=== PATIENT | male | born 1980 | race Caucasian/White ===

== ENCOUNTER 2016-11-21 18:51 | Inpatient (IN) | payer OTHER ==
[2016-11-21 18:59] VITALS: BMI 31.7
[2016-11-21] MEDS ORDERED: ONDANSETRON 4 MG/2 ML VIAL IVPB ONE (20:05)
[2016-11-21] MEDS ORDERED: morphine CARPU-JECT 2 MG/1 ML DISP.SYRIN IVPUSH ONE (20:06)
[2016-11-21] MEDS ORDERED: PIPERACILLIN/TAZOB 4.5 GM 4.5 GM in DEXTROSE 5%-WATER - 100 ML IVPB ONE (20:06)
[2016-11-21] MEDS ORDERED: ACETAMINOPHEN INJECTION 100 ML IVPB ONE (20:07)
[2016-11-21] MEDS ORDERED: ONDANSETRON 4 MG/2 ML VIAL ONE (20:07)
[2016-11-21] MEDS ORDERED: SODIUM CHLORIDE 0.9% 500 ML INFUS.BAG IV ONE (20:07)
[2016-11-21] MEDS ORDERED: morphine CARPU-JECT 2 MG/1 ML DISP.SYRIN ONE (20:07)
[2016-11-21] MEDS ORDERED: PIPERACILLIN/TAZOB 4.5 GM 100 ML IVPB ONE (20:07)
[2016-11-21] MEDS ORDERED: ACETAMINOPHEN 1000 MG/100 ML VIAL (NON FORMULARY) IVPB ONE (20:07)
--- NOTE | 2016-11-21 20:07 | PDOC ---
History of Present Illness - General History Source: Patient, Family Exam Limitations: No Limitations - History of Present Illness Initial Comments: 11/21/16 20:28 The patient is a 36 year old male with significant past medical history of kidney stones who presents to the ED for 1 week of right lower quadrant pain. Patient reports he developed pain to the right lower quadrant about 7 days ago. However, today his pain became more constant and sharp with associated fever, diaphoresis and nausea, but no vomiting or diarrhea. 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 Denies flank pain, dysuria, hematuria, urgency, and frequency. The patient denies chills, cough, SOB, chest pain, and palpitations. Allergies: NKDA Social History: No alcohol, tobacco, or drug use reported. Past Surgical History: None reported PCP: None reported <Adina Hernandez - Last Filed: 11/21/16 21:29> <Mona Alford - Last Filed: 11/21/16 21:35> - General Chief Complaint: Pain Stated Complaint: PAIN Time Seen by Provider: 11/21/16 19:49 Past History <Adina Hernandez - Last Filed: 11/21/16 21:29> - Past Medical History Kidney Stones: Yes - Psycho/Social/Smoking Cessation Hx Anxiety: No Suicidal Ideation: No Smoking History: Never smoked Hx Alcohol Use: No Drug/Substance Use Hx: No Substance Use Type: None <Mona Alford - Last Filed: 11/21/16 21:35> - Past Medical History Allergies/Adverse Reactions: Allergies Allergy/AdvReac Type Severity Reaction Status Date / Time No Known Allergies Allergy Verified 11/21/16 18:59 Home Medications: Ambulatory Orders NK [No Known Home Medication] 11/21/16 Review of Systems - Review of Systems Able to Perform ROS?: Yes Comments:: 11/21/16 20:29 CONSTITUTIONAL: +fever, diaphoresis Absent: no chills, no fatigue EYES: Absent: visual changes ENT: Absent: ear pain, no sore throat CARDIOVASCULAR: Absent: chest pain, no palpitations RESPIRATORY: Absent: cough, no SOB GI: +right lower quadrant pain, nausea Absent: no vomiting, no constipation, no diarrhea GENITOURINARY: Absent: dysuria, no frequency, no hematuria MUSCULOSKELETAL: Absent: back pain, no arthralgia, no myalgia SKIN: Absent: rash NEURO: Absent: headache <Adina Hernandez - Last Filed: 11/21/16 21:29> *Physical Exam - Vital Signs Last Vital Signs Temp Pulse Resp BP Pulse Ox 99.0 F 70 20 119/65 99 11/21/16 18:55 11/21/16 18:55 11/21/16 18:55 11/21/16 18:55 11/21/16 20:00 - Physical Exam Comments: 11/21/16 20:29 GENERAL: Well developed, well nourished. Awake and alert. Mild-moderate distress. HEENT: Normocephalic, atraumatic. PERRL, EOM intact. CARDIOVASCULAR: Normal S1, S2. Regular rate and rhythm. PULMONARY: Clear to auscultation bilaterally. ABDOMINAL: Soft. Right lower quadrant pain. Non-distended. + rebound and + guarding. No organomegaly. Normoactive bowel sounds. MUSCULOSKELETAL Normal range of motion at all joints. No bony deformities or tenderness. No flank tenderness, but after deep palpating right flank, patient was tender in the right lower quadrant. EXTREMITIES: Normal ROM in all four extremities. No gross deformities. SKIN: Warm, dry. No rash NEUROLOGICAL: No focal neurological deficits. <Adina Hernandez - Last Filed: 11/21/16 21:29> - Vital Signs Last Vital Signs Temp Pulse Resp BP Pulse Ox 99.0 F 70 20 119/65 98 11/21/16 18:55 11/21/16 18:55 11/21/16 18:55 11/21/16 18:55 11/21/16 18:55 <Mona Alford - Last Filed: 11/21/16 21:35> ED Treatment Course - LABORATORY CBC & Chemistry Diagram: 11/21/16 20:00 11/21/16 20:00 - ADDITIONAL ORDERS Additional order review: 11/21/16 20:00 RBC 5.42 MCV 80.2 MCHC 33.0 RDW 13.2 MPV 8.1 Neutrophils % Y Lymphocytes % Y - RADIOLOGY Radiograph Interpretation: 11/21/16 21:29 EXAM: CT abdomen pelvis with contrast Reviewed by Imaging production control scheduler:Findings: Atelectasis and scarring in lung bases. No pleural effusions. The liver, gallbladder, pancreas, adrenal glands, and spleen are unremarkable. Small nonobstructing right renal calculus. No ureteral calculi or hydronephrosis. No AAA. No evidence for diverticulitis, small bowel obstruction, free fluid, or free air. *Moderate diffuse thickening of the appendix measuring up to 16mm in diameter with appendicoliths and moderate edema, compatible with appendicitis. No evidence for perforation or abscess at this time. - Medications Given in the ED: ED Medications Discontinued Medications Generic Name Dose Route Start Last Admin Trade Name Ester PRN Reason Stop Dose Admin Acetaminophen 1,000 mg 11/21/16 20:07 11/21/16 20:16 Ofirmev Injection - IVPB 11/21/16 20:08 1,000 mg ONCE ONE Administration Morphine Sulfate 2 mg 11/21/16 20:06 11/21/16 20:14 Morphine Injection - IVPUSH 11/21/16 20:07 2 mg ONCE ONE Administration Ondansetron HCl 4 mg 11/21/16 20:05 11/21/16 20:13 Zofran Injection IVPB 11/21/16 20:06 4 mg ONCE ONE Administration Sodium Chloride 1,000 ml 11/21/16 20:07 11/21/16 20:14 Normal Saline - IV 11/21/16 20:08 1,000 ml ONCE ONE Administration <Adina Hernandez - Last Filed: 11/21/16 21:29> - LABORATORY CBC & Chemistry Diagram: 11/21/16 20:00 11/21/16 20:00 <Mona Alford - Last Filed: 11/21/16 21:35> Medical Decision Making - Medical Decision Making 11/21/16 20:[address] Kevin Jacome (via answering service) at 20:30 and patient's case was discussed <Adina Hernandez - Last Filed: 11/21/16 21:29> - Medical Decision Making 11/21/16 20:31 Pt comes with abdominal pain that has been brewing since Tuesday. States that the pain got significantly worse today. Pt is febrile WBC is 24; exam consistent with perforated appendicitis/appendicitis. Pt has no other complaints. He has a history of kidney stones. No dysuria or blood in urine at this time. Pt sent for a dry CTT after we ayde labs and treated with saline, zosyn, ofirmev and morphine. I spoke to Dr. Olguin surgery to give him a head's up. 11/21/16 20:39 atient Name: Carlos Rodríguez THIS IS A PRELIMINARY REPORT FROM [facility] EXAM : CT abdomen pelvis with contrast IMAGES: 423 DATE OF EXAM: 2016-11-21 20:33: 49.0 REASON FOR EXAM: Rule out perforated appendicitis COMPARISON: None Findings: Atelectasis and scarring in lung bases. No pleural effusions. The liver, gallbladder, pancreas, adrenal glands, and spleen are unremarkable. Small nonobstructing right renal calculus. No ureteral calculi or hydronephrosis. No AAA. No evidence for diverticulitis, small bowel obstruction , free fluid, or free air. *Moderate diffuse thickening of the appendix measuring up to 16mm in diameter with appendicoliths and moderate edema, compatible with appendicitis. No evidence for perforation or abscess at this time. THIS DOCUMENT HAS BEEN ELECTRONICALLY SIGNED Dr Olguin will take him to the OR; he is mobilizing the surgical team. 11/21/16 21:30 I will admit to the hospitalist <Mona Alford - Last Filed: 11/21/16 21:35> *DC/Admit/Observation/Transfer - Attestations Scribe Attestion: 11/21/16 20:29 Documentation prepared by Adina Hernandez, acting as medical collections representative for Mona Alford MD/DO. <Adina Hernandez - Last Filed: 11/21/16 21:29> - Discharge Dispostion Admit: Yes <Mona Alford - Last Filed: 11/21/16 21:35> Diagnosis at time of Disposition: Acute appendicitis - Discharge Dispostion Condition at time of disposition: Guarded
[2016-11-21 20:19] LABS: MCH 26.5 pg (25.7-33.7); MEAN CELL VOLUME 80.2 fl (80-96); MEAN PLT VOLUME 8.1 fl (7.5-11.1); PLATELET COUNT 300 K/MM3 (134-434); RDW 13.2 % (11.9-15.9); WHITE BLOOD COUNT 24.8 K/mm3 (4.0-10.0)
[2016-11-21 20:28] LABS: URINE APPEARANCE CLOUDY; URINE BILIRUBIN NEGATIVE (NEGATIVE); URINE BLOOD NEGATIVE (NEGATIVE); URINE COLOR LTYELLOW; URINE GLUCOSE (UA) NEGATIVE (NEGATIVE); URINE KETONE NEGATIVE (NEGATIVE); URINE LEUK ESTERASE NEGATIVE (NEGATIVE); URINE NITRITE NEGATIVE (NEGATIVE); URINE PROTEIN NEGATIVE (NEGATIVE); URINE UROBILINOGEN NEGATIVE E.U./dl (0.2-1.0)
[2016-11-21 20:38] LABS: INR 1.13 (0.82-1.09); PROTHROMBIN TIME (PATIENT) 12.5 SEC (9.98-11.88)
[2016-11-21 20:49] LABS: ALBUMIN 4.3 g/dl (3.4-5.0); AMYLASE 90 U/L (25-115); ANION GAP 10 (8-16); CALCIUM 9.3 mg/dL (8.5-10.1); CO2 24 mmol/L (21-32); COCKROFT - GAULT 137.59; CREATININE 0.8 mg/dL (0.7-1.3); GLUCOSE,RANDOM 110 mg/dL (74-106); SGOT/AST 16 U/L (15-37); SGPT/ALT 31 U/L (12-78)
[2016-11-21 20:51] LABS: ALK PHOS 94 U/L (45-117); BILIRUBIN,TOTAL 0.4 mg/dL (0.2-1.0); TOT PROT 7.8 g/dl (6.4-8.2)
[2016-11-21] MEDS ORDERED: morphine CARPU-JECT 2 MG/1 ML DISP.SYRIN IVPUSH PRN (21:59)
[2016-11-21] MEDS ORDERED: ONDANSETRON 4 MG/2 ML VIAL IVPB PRN (21:59)
[2016-11-21] MEDS ORDERED: SODIUM CHLORIDE 1,000 ML IV SCH (22:00)
--- NOTE | 2016-11-21 22:14 | HP ---
Admitting History and Physical - Admission Chief Complaint: abd pain History of Present Illness: History obtained from chart Patient sent to OR Per chart this is a 36 yo M w hx of kidney stones who presents to the ED for 1 week of right lower quadrant pain. Patient reports he developed pain to the right lower quadrant about 7 days ago. However, today his pain became more constant and sharp with associated fever, diaphoresis and nausea, but no vomiting or diarrhea. He was found to have appendicitis on Ct scan and sent to OR for appendectomy. He was given 1 dose of zosyn in the ER. His wbc was 24. Ros unobtainable Physical- unobtainable patient in surgery Problem list Appendicitis Leukocytosis Imaging CTAP: 11/21/16 20:39 atient Name: Carlos Rodríguez THIS IS A PRELIMINARY REPORT FROM [facility]IN[facility] EXAM : CT abdomen pelvis with contrast IMAGES: 423 DATE OF EXAM: 2016-11-21 20:33: 49.0 REASON FOR EXAM: Rule out perforated appendicitis COMPARISON: None Findings: Atelectasis and scarring in lung bases. No pleural effusions. The liver, gallbladder, pancreas, adrenal glands, and spleen are unremarkable. Small nonobstructing right renal calculus. No ureteral calculi or hydronephrosis. No AAA. No evidence for diverticulitis, small bowel obstruction , free fluid, or free air. *Moderate diffuse thickening of the appendix measuring up to 16mm in diameter with appendicoliths and moderate edema, compatible with appendicitis. No evidence for perforation or abscess at this time. THIS DOCUMENT HAS BEEN ELECTRONICALLY SIGNED A/P 1. Appendicitis Given Zosyn in the ER No perf noted on CT Surgery called and slated for OR 2. Leukocytosis likely 2/2 appendectomy Trend CBC DVT prophy scds,oob, hold chemo prophy 2/2 anticipated sx Fen NPO IVF Dispo- Requires >2MN stay for acute appendicitis History Source: Medical Record - Smoking History Smoking history: Never smoked - Alcohol/Substance Use Hx Alcohol Use: No Home Medications - Allergies Allergies/Adverse Reactions: Allergies Allergy/AdvReac Type Severity Reaction Status Date / Time No Known Allergies Allergy Verified 11/21/16 18:59 - Home Medications Home Medications: Ambulatory Orders NK [No Known Home Medication] 11/21/16 Physical Examination Vital Signs: Vital Signs Temperature 98.8 F 11/21/16 22:03 Pulse Rate 59 L 11/21/16 22:03 Respiratory Rate 20 11/21/16 22:03 Blood Pressure 104/65 11/21/16 22:03 O2 Sat by Pulse Oximetry (%) 98 11/21/16 22:03 Labs: CBC, BMP 11/21/16 20:00 11/21/16 20:00 Visit type - Emergency Visit Emergency Visit: Yes ED Registration Date: 11/21/16 Care time: The patient presented to the Emergency Department on the above date and was hospitalized for further evaluation of their emergent condition. - New Patient This patient is new to me today: Yes Date on this admission: 11/22/16 - Critical Care Critical Care patient: No
[2016-11-21] MEDS ORDERED: PROPOFOL 20 ML ONE (22:19)
[2016-11-21] MEDS ORDERED: ROCURONIUM BROMIDE 50 MG/5 ML VIAL ONE (22:19)
[2016-11-21] MEDS ORDERED: LIDOCAINE HCL/PF 2% SDV 5ML VIAL ONE (22:20)
[2016-11-21] MEDS ORDERED: DEXAMETHASONE SOD PHOSPHATE 4 MG/1 ML VIAL ONE (22:20)
--- NOTE | 2016-11-21 22:31 | HP ---
Admitting History and Physical - Admission Chief Complaint: abd pain History of Present Illness: pt is a 36M with abd pain x 1 week in RLQ. ER workup reveals WBC of [address] scan showing no perforation, thick appendix with appendicolith c/w dx of appendicitis. Limitations to Obtaining History: Language Barrier - Smoking History Smoking history: Never smoked - Alcohol/Substance Use Hx Alcohol Use: No Home Medications - Allergies Allergies/Adverse Reactions: Allergies Allergy/AdvReac Type Severity Reaction Status Date / Time No Known Allergies Allergy Verified 11/21/16 18:59 - Home Medications Home Medications: Ambulatory Orders NK [No Known Home Medication] 11/21/16 Family Disease History - Family Disease History Family History: Unremarkable Review of Systems - Review of Systems Constitutional: denies: Chills, Fever Eyes: denies: Blind Spots, Blurred Vision HENT: denies: Difficult Swallowing, Ear Discharge Neck: denies: Decreased ROM, Pain on Movement Cardiovascular: denies: Chest Pain, Edema Respiratory: denies: Cough, Exercise Intolerance Gastrointestinal: reports: Abdominal Pain. denies: Bloating Genitourinary: denies: Burning, Discharge Musculoskeletal: denies: Back Pain, Crepitus Integumentary: denies: Blister, Bruising Neurological: denies: Change in LOC, Change in Speech Endocrine: denies: Excessive Sweating, Flushing Hematology/Lymphatic: denies: Easily Bruised, Excessive Bleeding Psychiatric: denies: Altered Sleep Pattern, Anxiety Physical Examination Vital Signs: Vital Signs Temperature 98.8 F 11/21/16 22:03 Pulse Rate 59 L 11/21/16 22:03 Respiratory Rate 20 11/21/16 22:03 Blood Pressure 104/65 11/21/16 22:03 O2 Sat by Pulse Oximetry (%) 98 11/21/16 22:03 Constitutional: Yes: No Distress, Calm Eyes: Yes: Conjunctiva Clear, EOM Intact HENT: Yes: Atraumatic, Normocephalic Neck: Yes: Supple, Trachea Midline Cardiovascular: Yes: Regular Rate and Rhythm Respiratory: Yes: Regular, CTA Bilaterally Gastrointestinal: Yes: Soft, Tenderness (RLQ tender, min mild). No: Distention ...Rectal Exam: Yes: Deferred Renal/: No: CVA Tenderness - Left, CVA Tenderness - Right Musculoskeletal: No: Back Pain, Joint Stiffness Extremities: No: Calf Tenderness, Erythema Integumentary: No: Erythema, Rash Neurological: Yes: Alert, Oriented Psychiatric: Yes: Alert, Oriented Labs: CBC, BMP 11/21/16 20:00 11/21/16 20:00 Imaging - Results Cat Scan: Image Reviewed Problem List - Problems (1) Acute appendicitis Assessment/Plan: for lap appy. r/b d/w pt and he understands and wishes to proceed. Code(s): K35.80 - UNSPECIFIED ACUTE APPENDICITIS
[2016-11-21] MEDS ORDERED: GLYCOPYRROLATE 0.2 MG/1 ML VIAL ONE ×2 (23:10→23:23)
[2016-11-21] MEDS ORDERED: NEOSTIGMINE METHYLSULFATE 0.5 MG/ML - 10 ML MDV ONE (23:22)
[2016-11-21] MEDS ORDERED: OXYCODONE/APAP 5/325MG COMBO TABLET PO PRN ×2 (23:30)
--- NOTE | 2016-11-21 23:32 | OP ---
Operative Note - Note: Operative Date: 11/21/16 Pre-Operative Diagnosis: appendicitis Operation: laparoscopic appendectomy Findings: appendicitis Post-Operative Diagnosis: Same as Pre-op Surgeon: Kevin Jacome Anesthesia: General Specimens Removed: appendix Estimated Blood Loss (mls): 5 Operative Report Dictated: Yes
[2016-11-22] MEDS ORDERED: SODIUM CHLORIDE 1,000 ML IV SCH
[2016-11-22] MEDS ORDERED: ONDANSETRON 4 MG/2 ML VIAL IVPB PRN
[2016-11-22] MEDS: HYDROmorphone HCL CARPU-JECT 1 MG/1 ML DISP.SYRIN IVPUSH PRN ×2 (00:02→00:20)
[2016-11-22] MEDS ORDERED: HYDROmorphone HCL CARPU-JECT 2 MG/1 ML DISP.SYRIN ONE (00:03)
--- NOTE | 2016-11-22 00:46 | OP ---
DATE OF OPERATION: 11/21/2016 PREOPERATIVE DIAGNOSIS: Appendicitis. POSTOPERATIVE DIAGNOSIS: Appendicitis. PROCEDURE: Laparoscopic appendectomy. SURGEON: Madina Jacome MD ANESTHESIA: General endotracheal anesthesia. ESTIMATED BLOOD LOSS: Minimal. DESCRIPTION OF PROCEDURE: Patient was brought to the operating room from the emergency room after confirming his name, date of , medical record number. He was placed in the supine position. SCDs for DVT prophylaxis. He was given appropriate perioperative antibiotics. He was then induced and intubated by the anesthesiologist. A Hurley catheter was then placed under sterile conditions. He was then prepped and draped in the usual sterile fashion after his left arm was tucked. A timeout was then performed. A 1-inch supraumbilical incision was made and bluntly dissected down to the fascia. I used electrocautery to go through the fascia and lifted his abdominal wall anteriorly. I then grabbed his peritoneum with Gloria clamps, lifted anteriorly, and then cut and entered his abdomen sharply. I then placed my finger inside the abdomen and confirmed no adhesions and then placed a 12-mm balloon with Ulysses trocar inside the abdomen. I insufflated the abdomen to a pressure of 15 mmHg. I then placed 5-mm trocars in the suprapubic and left lower quadrant regions with translumination to ensure no injury to abdominal wall blood vessels. The patient was then placed in Trendelenburg position with the right side up. The large appendix was readily identified. There were some retroperitoneal attachments of the mid to proximal appendix and these were bluntly dissected off. Once I was able to free up the appendix, I then dissected the base of the appendix from the mesentery with the Jodi dissector. Once I went through, I use the bowel grasper to make the hole bigger. I then fired a white-load 45-mm stapler to take the mesentery of the appendix. Hemostasis was noted to be excellent. With the appendix completely in the air, I then confirmed that the ileocecal valve was far away and I took it at the base of the appendix with a 45-mm blue-load stapler. At this point, I irrigated and aspirated out all fluid, ensured hemostasis, and placed the appendix in a 10-mm specimen retrieval bag and sent it off of the field for permanent examination. I then reinspected the staple lines and was satisfied with perfect hemostasis. I then removed the ports and desufflated the abdomen. I then closed the supraumbilical fascia with a [id number] 0 Vicryl suture and then reapproximated the skin and subcutaneous tissues with 4-0 Monocryl. A Hurley catheter was to be removed. All counts were correct. MADINA JACOME M.D. ADAM/[id number]
[2016-11-22] MEDS ORDERED: HYDROmorphone HCL CARPU-JECT 1 MG/1 ML DISP.SYRIN IVPB PRN (05:00)
[2016-11-22 08:16] LABS: BASOPHIL 0.1 % (0-2.0); MCH 27.4 pg (25.7-33.7); MCHC 33.5 g/dl (32.0-35.9); MEAN CELL VOLUME 81.7 fl (80-96); MEAN PLT VOLUME 7.9 fl (7.5-11.1); NEUTROPHILS 88.8 % (42.8-82.8); PLATELET COUNT 268 K/MM3 (134-434); RDW 13.4 % (11.9-15.9); WHITE BLOOD COUNT 16.9 K/mm3 (4.0-10.0)
[2016-11-22 08:33] LABS: CALCIUM 8.6 mg/dL (8.5-10.1)
[2016-11-22 08:34] LABS: COCKROFT - GAULT 220.14; CREATININE 0.5 mg/dL (0.7-1.3)
--- NOTE | 2016-11-22 08:40 | PN ---
Progress Note (short form) - Note Progress Note: 36 yo male POD1 from lap appy. Doing well. Ambulating. Pain adequately controlled. Nausea resolved. Vital Signs Temperature 97.9 F 11/22/16 06:00 Pulse Rate 66 11/22/16 06:00 Respiratory Rate 16 11/22/16 06:00 Blood Pressure 110/50 11/22/16 06:00 O2 Sat by Pulse Oximetry (%) 100 11/22/16 02:58
--- NOTE | 2016-11-22 09:31 | PN ---
Progress Note, Physician Chief Complaint: none History of Present Illness: some postop nausea but finished his regular diet breakfast. no pain. feels alot better. - Current Medication List Current Medications: Active Medications Sodium Chloride (Normal Saline -) 1,000 mls @ 150 mls/hr IV ASDIR BEREKET Last Admin: 11/22/16 08:28 Dose: 150 mls/hr Ondansetron HCl (Zofran Injection) 4 mg IVPB Q4H PRN PRN Reason: NAUSEA AND/OR VOMITING Last Admin: 11/22/16 08:02 Dose: 4 mg Oxycodone/Acetaminophen (Percocet 5/325 -) 2 combo PO Q4H PRN PRN Reason: PAIN LEVEL 6-10 Oxycodone/Acetaminophen (Percocet 5/325 -) 1 combo PO Q4H PRN PRN Reason: PAIN LEVEL 1-5 - Objective Vital Signs: Vital Signs Temperature 97.9 F 11/22/16 06:00 Pulse Rate 66 11/22/16 06:00 Respiratory Rate 16 11/22/16 06:00 Blood Pressure 110/50 11/22/16 06:00 O2 Sat by Pulse Oximetry (%) 100 11/22/16 02:58 Constitutional: Yes: No Distress, Calm Gastrointestinal: Yes: Soft. No: Distention, Tenderness Wound/Incision: Yes: Clean/Dry, Well Approximated Labs: CBC, BMP 11/22/16 06:38 11/22/16 06:38 INR, PTT INR 1.13 (0.82-1.09) 11/21/16 20:00 Problem List - Problems (1) Acute appendicitis Assessment/Plan: s/p lap appy clear for discharge f/u with me in 1-2 weeks please give him rx for percocet #30 he can call my office [phone] if he needs doctor notes can shower today. no heavy lifting 30 lbs encourage laxative use if constipated from pain medication Code(s): K35.80 - UNSPECIFIED ACUTE APPENDICITIS
[2016-11-22] MEDS ORDERED: INFLUENZA VACCINE 60 MCG/0.5 ML (P/F DISP.SYRIN 16-17) IM ONE (11:00)
--- NOTE | 2016-11-22 12:25 | DS ---
Physical Exam: SUBJECTIVE: Patient seen and examined at bedside. Ambulatory. Ate lunch, tolerated. OBJECTIVE: Vital Signs Period Temp Pulse Resp BP Sys/Hannon Pulse Ox Last 24 Hr 97.7 F-98.8 F 59-88 16-23 100-123/50-70 96-100 PHYSICAL EXAM GENERAL: The patient is awake, alert, and fully oriented, in no acute distress. HEAD: Normal with no signs of trauma. LUNGS: Breath sounds equal, clear to auscultation bilaterally, no wheezes, no crackles, no accessory muscle use. HEART: Regular rate and rhythm, S1, S2 without murmur, rub or gallop. ABDOMEN: Soft, tender, nondistended, normoactive bowel sounds, no guarding, no rebound; surgical incisions c/d/i, edges well approximated, no erythema, warmth , or exudate EXTREMITIES: 2+ pulses, warm, well-perfused, no edema. NEUROLOGICAL: Cranial nerves II through XII grossly intact. Normal speech, steady gait Laboratory Results - last 24 hr 11/22/16 11/22/16 06:38 06:38 WBC 16.9 H D RBC 4.83 Hgb 13.2 Hct 39.5 MCV 81.7 MCHC 33.5 RDW 13.4 Plt Count 268 MPV 7.9 Neutrophils % 88.8 H Lymphocytes % 6.5 L D Monocytes % 4.6 Eosinophils % 0.0 Basophils % 0.1 D Sodium 139 Potassium 4.3 Chloride 103 Carbon Dioxide 24 Anion Gap 12 BUN 7 D Creatinine 0.5 L D Random Glucose 119 H Calcium 8.6 HOSPITAL COURSE: Date of Admission:11/21/16 Date of Discharge: 11/22/16 Patient reports he developed pain to the right lower quadrant about 7 days ago. The pain became worse on the day of presentation with fever, diaphoresis, and nausea. On admission his WBC was 24.8k, afebrile. Taken to the OR where he underwent laporascopic appendectomy. Post op course uneventful. Discharged POD # 1 with followup in 1 -2 weeks. Minutes to complete discharge: 35 Discharge Summary Reason For Visit: ACUTE APPENDICITIS Current Active Problems Acute appendicitis (Acute) Condition: Improved - Instructions Diet, Activity, Other Instructions: You need to follow up with your surgeon, Dr. Kevin Jacome, in one week. His contact information is enclosed. Call his office to make an appointment. Two prescriptions have been sent to your pharmacy. One is for percocet for pain relief and the other is for Miralax to avoid constipation. NO HEAVY LIFTING MORE THAN 30 [address]DS until you see Dr. Jacome. You may shower. Be sure to drink plenty of fluids and stay well-hydrated. Referrals: Kevin Jacome MD [Staff Physician] - 1 Week Disposition: HOME - Home Medications Comprehensive Discharge Medication List: Ambulatory Orders Oxycodone HCl/Acetaminophen [Percocet 5-325 mg Tablet] 1 combo PO Q4H PRN #30 tablet MDD 6 11/22/16 This patient is new to me today: Yes Date on this admission: 11/24/16 Emergency Visit: Yes ED Registration Date: 11/21/16 Care time: The patient presented to the Emergency Department on the above date and was hospitalized for further evaluation of their emergent condition. Critical Care patient: No - Discharge Referral Referred to [facility] No
[2016-11-22 15:44] VITALS: BP 102/64; PULSE 57; TEMP 98.7
--- NOTE | 2016-11-23 13:53 | PATH ---
Surgical Pathology Report Patient Name: CRYSTAL REA [facility]. Rec. #: [id number] /Age/Gender: 1980 (Age: 36) / M Account: [id number] Location: [address] [place] [address]/[facility] Taken: 11/21/2016 Received: 11/22/2016 Reported: 11/23/2016 Physicians: Kevin Jacome MD Specimen(s) Received APPENDIX Clinical History Acute appendicitis Final Diagnosis APPENDIX, APPENDECTOMY: ACUTE APPENDICITIS AND PERIAPPENDICITIS. Electronically Signed Aldo Gutierrez M.D. Gross Description Received in formalin, labeled "appendix" is a 6.5 cm in length vermiform appendix with a stapled margin of resection and moderate attached fat. The serosa is miller-nieto with attached exudate. Sectioning reveals a dilated lumen containing brown fecal material. The wall of the appendix averages 0.2 cm in thickness. Fur Machine Operator sections are submitted in 2 cassettes as follows: 1-bisected distal tip of appendix; 2-cross sections of appendix. /[facility]
== END 2016-11-22 16:35 | disposition home or self-care (01) | DRG 225 ==
LOC: JER 18:51 → JERBED 21:35 → J6S 11-22 01:57
PROVIDERS: ADMIT Internal Medicine; ATTEND Nurse Practitioner Acute Care
PROC: 0DTJ4ZZ Resection of Appendix, Percutaneous Endoscopic Approach (ICD-10-PCS; principal; 2016-11-21 22:00)
DX: K35.80 Unspecified acute appendicitis (principal); Z87.442 Personal history of urinary calculi; D72.828 Other elevated white blood cell count
CPT/HCPCS: 36415; 74176-TC; 80048; 80053; 81003; 82150; 83690; 85025; 85610; 86850; 86900; 86901; 88304-TC; 90686; 94760; 99283-25; G0008

== ENCOUNTER 2017-07-17 13:12 | Emergency (ER) | payer OTHER ==
[2017-07-17 13:22] VITALS: BP 135/71; PULSE 55; TEMP 98.5; BMI 29.8
--- NOTE | 2017-07-17 13:59 | PDOC ---
History of Present Illness - General Chief Complaint: Back Pain Stated Complaint: BACK PAIN Time Seen by Provider: 07/17/17 13:55 History Source: Patient Exam Limitations: No Limitations - History of Present Illness Initial Comments: 07/17/17 13:58 CHIEF COMPLAINT: Lower abdominal and low back pain, has been having mild pain for one week while doing laundry today started to have stabbing intermittent pain, lower abdomen radiating to back. 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 HISTORY OF PRESENT ILLNESS: Patient is a 37-year-old male, denies any significant medical history currently on no medication presents for evaluation of mid lower abdominal pain and bilateral back pain since this afternoon has been having mild intermittent pain for 1 week. Patient denies any trauma, denies lifting anything heavy. No history of renal colic. Has been having occasional penile discharge [place], denies any new sexual activity. Patient reports pain as stabbing. Denies any hematuria. history: Delivered at 37 weeks, no O2 or NICU stay required. Past Medical History: See nursing note, Family History: Otherwise not significant Social History: Otherwise not significant REVIEW OF SYSTEMS: GENERAL/CONSTITUTIONAL: No fever or chills. No weakness. No weight change. HEAD, EYES, EARS, NOSE AND THROAT: No change in vision. No ear pain or discharge. No sore throat. CARDIOVASCULAR: No chest pain or shortness of breath. RESPIRATORY: No cough, no wheezing GASTROINTESTINAL: No diarrhea or constipation. GENITOURINARY: No dysuria, frequency, or change in urination. MUSCULOSKELETAL: No joint or muscle swelling or pain. No neck or back pain. SKIN: No rash or lesions NEUROLOGIC: No headache. HEMATOLOGIC/LYMPHATIC: No lymphadenopathy ALLERGIC/IMMUNOLOGIC: No hives or skin allergy. No latex allergy. PHYSICAL EXAM: GENERAL: The child is awake, alert, and appropriately interactive. EYES: The pupils are equal, round, and reactive to light, with clear, conjunctiva pale mildly icteric NOSE: The nose is clear without discharge. EARS: The ear canals and tympanic membranes are normal. THROAT: The oropharynx is clear without erythema or exudates. No oral lesions . The mucous membranes are moist. NECK: The neck is supple without adenopathy or meningismus. CHEST: The lungs are clear without wheezes or rhonchi. HEART: Heart is regular rhythm, with normal S1 and S2, no murmurs. ABDOMEN: The abdomen is soft and tender to suprapubic area, no left or right rebound tenderness. There is no organomegaly and no mass. There is no guarding. MUSCULOSKELETAL: No CVA tenderness. NEURO: Behavior is normal for age. Tone is normal. SKIN: No rash , lesions or petechie. 07/17/17 14:30 Past History - Past Medical History Allergies/Adverse Reactions: Allergies Allergy/AdvReac Type Severity Reaction Status Date / Time No Known Allergies Allergy Verified 07/17/17 13:22 Home Medications: Ambulatory Orders Naproxen [Naprosyn -] 500 mg PO BID #14 tablet 07/17/17 COPD: No Kidney Stones: No - Surgical History Cholecystectomy: Yes - Suicide/Smoking/Psychosocial Hx Smoking History: Never smoked Hx Alcohol Use: No Drug/Substance Use Hx: No Substance Use Type: None *Physical Exam - Vital Signs Last Vital Signs Temp Pulse Resp BP Pulse Ox 98.5 F 55 L 20 135/71 99 07/17/17 13:19 07/17/17 13:19 07/17/17 13:19 07/17/17 13:19 07/17/17 13:19 ED Treatment Course - LABORATORY CBC & Chemistry Diagram: 07/17/17 14:15 07/17/17 14:15 Medical Decision Making - Medical Decision Making 07/17/17 14:34 A/P: Patient here for evaluation of mid lower abdominal pain, suprapubic and bilateral lateral back pain. Patient denies any urinary symptoms, does report pain I'll discharge but has been having this for several months. Denies any new recent sexual activity. Patient does working construction and thinks he may have lifted something but does not remember a specific incident. Patient with no rebound tenderness to right or left lower quadrant. Plan: Urinalysis, urine culture, gonorrhea chlamydia CBC and CMP Toradol 60 mg IM 1 for pain. *DC/Admit/Observation/Transfer Diagnosis at time of Disposition: Back pain Qualifiers: Back pain location: low back pain Chronicity: acute Back pain laterality: bilateral Sciatica presence: without sciatica Qualified Code(s): M54.5 - Low back pain - Discharge Dispostion Disposition: HOME Condition at time of disposition: Stable Admit: No - Prescriptions Prescriptions: Naproxen [Naprosyn -] 500 mg PO BID #14 tablet - Referrals Referrals: [facility] [Provider Group] - Patient Instructions Printed Discharge Instructions: DI for Low Back Pain Additional Instructions: 1. Please return to the emergency department with any numbness, tingling, weakness, numbness or tingling to groin or legs, or loss of bowel or bladder function. 2. Use pain medication as ordered. 3. Please is to followup in the office of for evaluation within a week if no improvement. 4. Ice or heat 5. Refrain from lifting anything above 10 pounds, until pain resolved. 1. Regrese al servicio de urgencias con cualquier entumecimiento, hormigueo, debilidad, entumecimiento u hormigueo en la omari o las piernas, o la prdida de la funcin intestinal o de la vejiga. 2. Use medicamento para el dolor segn lo ordenado. 3. Por favor, haley un seguimiento en la oficina de evaluacin dentro de anibal semana si no mejora. 4. Hielo o calor 5. Abstngase de levantar algo que pese ms de 10 libras hasta que desaparezca el dolor. - Post Discharge Activity Forms/Work/School Notes: Back to Work
[2017-07-17] MEDS ORDERED: KETOROLAC TROMETHAMINE 60 MG/2 ML VIAL IM ONE (14:11)
[2017-07-17] MEDS ORDERED: KETOROLAC TROMETHAMINE 60 MG/2 ML VIAL ONE (14:24)
[2017-07-17 14:32] LABS: BASO % 0.5 % (0-2.0); EOS % 1.3 % (0-4.5); HEMATOCRIT 42.9 % (35.4-49); HEMOGLOBIN 13.9 GM/dL (11.7-16.9); LYMPH % 26.7 % (8-40); MCH 26.4 pg (25.7-33.7); MCHC 32.4 g/dl (32.0-35.9); MEAN CELL VOLUME 81.5 fl (80-96); MEAN PLT VOLUME 8.2 fl (7.5-11.1); MONO % 5.7 % (3.8-10.2); NEUT % 65.8 % (42.8-82.8); PLATELET COUNT 301 K/MM3 (134-434); RBC 5.27 M/mm3 (4.00-5.60); RDW 13.9 % (11.9-15.9); WHITE BLOOD COUNT 11.6 K/mm3 (4.0-10.0)
[2017-07-17 14:48] LABS: URINE APPEARANCE CLEAR; URINE BILIRUBIN NEGATIVE (NEGATIVE); URINE BLOOD NEGATIVE (NEGATIVE); URINE COLOR LTYELLOW; URINE GLUCOSE (UA) NEGATIVE (NEGATIVE); URINE KETONE NEGATIVE (NEGATIVE); URINE LEUK ESTERASE NEGATIVE (NEGATIVE); URINE NITRITE NEGATIVE (NEGATIVE); URINE PROTEIN NEGATIVE (NEGATIVE); URINE UROBILINOGEN NEGATIVE mg/dL (0.2-1.0)
[2017-07-17 15:11] LABS: ALBUMIN 4.1 g/dl (3.4-5.0); ALK PHOS 91 U/L (45-117); ANION GAP 9 (8-16); BILIRUBIN,TOTAL 0.3 mg/dL (0.2-1.0); BLOOD UREA NITROGEN 10 mg/dL (7-18); CHLORIDE 108 mmol/L (98-107); CO2 26 mmol/L (21-32); CREATININE 0.8 mg/dL (0.7-1.3); GLUCOSE,RANDOM 137 mg/dL (74-106); POTASSIUM 3.8 mmol/L (3.5-5.1); SGOT/AST 14 U/L (15-37); SGPT/ALT 30 U/L (12-78); SODIUM 143 mmol/L (136-145); TOT PROT 7.4 g/dl (6.4-8.2)
== END 2017-07-17 16:09 | disposition home or self-care (01) ==
LOC: JERFT 13:12
PROC: 3E0233Z Introduction of Anti-inflammatory into Muscle, Percutaneous Approach (ICD-10-PCS; principal; 2017-07-17)
DX: M54.5 Low back pain (principal)
CPT/HCPCS: 36415; 80053; 81003; 85025; 87086; 87491; 87591; 96372; 99281-25

== ENCOUNTER 2017-07-18 03:09 | Emergency (ER) | payer OTHER ==
[2017-07-18] MEDS ORDERED: SODIUM CHLORIDE 1,000 ML IV STA (03:26)
[2017-07-18] MEDS ORDERED: morphine CARPU-JECT 4 MG/1 ML DISP.SYRIN IVPUSH ONE (03:26)
[2017-07-18] MEDS ORDERED: KETOROLAC TROMETHAMINE 15 MG/ML VIAL IVPUSH ONE (03:27)
[2017-07-18] MEDS ORDERED: morphine CARPU-JECT 10 MG/1 ML DISP.SYRIN ONE (03:32)
[2017-07-18] MEDS ORDERED: KETOROLAC TROMETHAMINE 15 MG/ML VIAL ONE (03:33)
--- NOTE | 2017-07-18 03:34 | PDOC ---
Attending Attestation - Resident Resident Name: Micheal Weiss - ED Attending Attestation I have performed the following: I have examined & evaluated the patient, The case was reviewed & discussed with the resident, I agree w/resident's findings & plan, Exceptions are as noted - HPI HPI: 07/18/17 03:42 37y M no pmhx presents with RLQ pain that radites to the R flank. Pt was here in the ED earlier, had blood work and UA that was neg, was dc with msk pain w/ napraxen. pt has been taking naproxen with moderate improvement but pain wowrsened this evening associated with nausea/vomiting (no coffee grounds/blood) . pt denies any fever/chills, trauma, back pain, urinary sypmtoms, diarrhea, no testicualr tenderness on exam the pt appears well no significant abdominal tendenress, no cva tenderness will obtain spiral ct to r/o kidney stones morphine for pain, fluids for hydration - Physicial Exam PE: 07/18/17 06:37 see above - Medical Decision Making 07/18/17 06:[address] c/w kidney stone will dc with supportive measures and fu
[2017-07-18 03:56] VITALS: BP 121/53; PULSE 73; TEMP 98.6; BMI 25.0
[2017-07-18 04:00] LABS: BASO % 0.3 % (0-2.0); EOS % 0.5 % (0-4.5); HEMATOCRIT 39.5 % (35.4-49); HEMOGLOBIN 12.8 GM/dL (11.7-16.9); LYMPH % 12.3 % (8-40); MCH 26.5 pg (25.7-33.7); MCHC 32.5 g/dl (32.0-35.9); MEAN CELL VOLUME 81.8 fl (80-96); MEAN PLT VOLUME 8.3 fl (7.5-11.1); MONO % 9.8 % (3.8-10.2); NEUT % 77.1 % (42.8-82.8); PLATELET COUNT 266 K/MM3 (134-434); RBC 4.83 M/mm3 (4.00-5.60); RDW 13.8 % (11.9-15.9); WHITE BLOOD COUNT 14.8 K/mm3 (4.0-10.0)
[2017-07-18 04:27] LABS: URINE APPEARANCE CLEAR; URINE BILIRUBIN NEGATIVE (NEGATIVE); URINE BLOOD NEGATIVE (NEGATIVE); URINE COLOR STRAW; URINE GLUCOSE (UA) NEGATIVE (NEGATIVE); URINE KETONE NEGATIVE (NEGATIVE); URINE LEUK ESTERASE NEGATIVE (NEGATIVE); URINE NITRITE NEGATIVE (NEGATIVE); URINE PROTEIN NEGATIVE (NEGATIVE); URINE UROBILINOGEN NEGATIVE mg/dL (0.2-1.0)
--- NOTE | 2017-07-18 04:36 | PDOC ---
History of Present Illness - General Chief Complaint: Pain Stated Complaint: ABD PAIN Time Seen by Provider: 07/18/17 03:14 History Source: Patient Exam Limitations: No Limitations - History of Present Illness Initial Comments: 07/18/17 04:29 Patient is a 37M with history of kidney stones, appendicitis s/p appendectomy in 12/01 and cholecystitis s/p cholecystectomy here today complaining of sudden onset of abdominal pain in the RLQ radiating to the back at 2am today, waking him from sleep. He was seen yesterday in the ED, where he was diagnosed with back pain. Labs were normal, no blood was in the urine. Last bowel movement was yesterday morning. Denies blood in urine and pain with urination. He says he vomited twice because of the pain. Past History - Past Medical History Allergies/Adverse Reactions: Allergies Allergy/AdvReac Type Severity Reaction Status Date / Time No Known Allergies Allergy Verified 07/18/17 03:26 Home Medications: Ambulatory Orders Naproxen [Naprosyn -] 500 mg PO BID #14 tablet 07/17/17 Oxycodone HCl/Acetaminophen [Percocet 5-325 mg Tablet -] 1 combo PO Q6H PRN #14 tablet MDD 4 07/18/17 Tamsulosin HCl [Flomax] 0.4 mg PO DAILY #28 capsule 07/18/17 COPD: No [facility] - Surgical History Appendectomy: Yes Cholecystectomy: Yes - Suicide/Smoking/Psychosocial Hx Smoking History: Never smoked Have you smoked in the past 12 months: No Information on smoking cessation initiated: No Hx Alcohol Use: No Drug/Substance Use Hx: No Substance Use Type: None Review of Systems - Review of Systems Comments:: 07/18/17 04:39 GENERAL/CONSTITUTIONAL: No fever or chills. HEAD, EYES, EARS, NOSE AND THROAT: No change in vision. No sore throat. CARDIOVASCULAR: No chest pain. Positive for shortness of breath with pain RESPIRATORY: No cough, wheezing, or hemoptysis. GASTROINTESTINAL: Positive for nausea and vomiting. Negative for diarrhea or constipation. GENITOURINARY: No dysuria, frequency, or change in urination. MUSCULOSKELETAL: No joint or muscle swelling or pain. Positive for back pain. SKIN: No rash NEUROLOGIC: No headache, vertigo, loss of consciousness, or change in strength/ sensation. ALLERGIC/IMMUNOLOGIC: No hives or skin allergy. *Physical Exam - Vital Signs Last Vital Signs Temp Pulse Resp BP Pulse Ox 98.6 F 73 20 121/53 100 07/18/17 03:26 07/18/17 03:26 07/18/17 03:26 07/18/17 03:26 07/18/17 03:26 - Physical Exam Comments: 07/18/17 04:40 GENERAL: Awake, alert, and fully oriented, in moderate distress, moving in bed, pressing on own abdomen HEAD: No signs of trauma, normocephalic, atraumatic EYES: PERRLA, EOMI, sclera anicteric, conjunctiva clear ENT: Auricles normal inspection, hearing grossly normal, nares patent, oropharynx clear without exudates. Moist mucosa LUNGS: No distress, speaks full sentences, clear to auscultation bilaterally HEART: Regular rate and rhythm, normal S1 and S2, no murmurs, rubs or gallops, peripheral pulses normal and equal bilaterally. ABDOMEN: Soft, minimally tender in rlq, normoactive bowel sounds. No guarding, no rebound. No CVA tenderness EXTREMITIES: Normal inspection, Normal range of motion, no edema. No clubbing or cyanosis. NEUROLOGICAL: Cranial nerves II through XII grossly intact. Normal speech, no focal sensorimotor deficits SKIN: Warm, Dry, normal turgor, no rashes or lesions noted. ED Treatment Course - LABORATORY CBC & Chemistry Diagram: 07/18/17 03:45 07/18/17 03:45 - ADDITIONAL ORDERS Additional order review: Laboratory Results 07/18/17 04:15 Urine Color Straw Urine Appearance Clear Urine pH 6.0 Ur Specific [place] 1.012 Urine Protein Negative Urine Glucose (UA) Negative Urine Ketones Negative Urine Blood Negative Urine Nitrite Negative Urine Bilirubin Negative Urine Urobilinogen Negative 07/18/17 03:45 RBC 4.83 MCV 81.8 MCHC 32.5 RDW 13.8 MPV 8.3 Neutrophils % 77.1 Lymphocytes % 12.3 D Monocytes % 9.8 Eosinophils % 0.5 Basophils % 0.3 - RADIOLOGY Radiology Studies Ordered: Category Date Time Status SPIRAL- RENAL-STONE CT [CT] Stat CT Scan 07/18/17 03:27 Taken - Medications Given in the ED: ED Medications Discontinued Medications Generic Name Dose Route Start Last Admin Trade Name Freq PRN Reason Stop Dose Admin Sodium Chloride 1,000 mls @ 1,000 mls/hr 07/18/17 03:26 07/18/17 04:05 Normal Saline - IV 07/18/17 04:25 1,000 mls/hr ASDIR STA Administration Morphine Sulfate 4 mg 07/18/17 03:26 07/18/17 04:02 Morphine Injection - IVPUSH 07/18/17 03:27 4 mg ONCE ONE Administration Medical Decision Making - Medical Decision Making 07/18/17 04:41 37M with history of nephrolithiasis, appendectomy and cholecystectomy here today with abdominal pain. Vital signs stable and normal. History and exam most consistent with kidney stones, but differential diagnosis also includes, but is not limited to: UTI, colitis, abscess. Will evaluate with cbc, cmp, ua, lipase, spiral ct. Will treat with fluids and morphine. Patient took naproxen at 2am prior to presentation. 07/18/17 04:43 Laboratory Tests 07/18/17 07/18/17 03:45 04:15 WBC 14.8 H Hgb 12.8 Hct 39.5 Plt Count 266 Urine Blood Negative CBC shows white count of 14.8. UA negative for infection and blood. CMP pending. My wet read of CT shows kidney stone. Patient reports feeling much better now. Official read pending. 07/18/17 05:50 Laboratory Tests 07/18/17 03:45 BUN 10 Creatinine 0.9 Creat Clearance w eGFR > 60 CMP shows normal kidney function. No abnormalities. CT shows: Mild to moderate right hydronephrosis and mild perinephric inflammation secondary to a 5 mm UVJ stone, which is projecting into the bladder. *DC/Admit/Observation/Transfer Diagnosis at time of Disposition: Kidney stone - Discharge Dispostion Disposition: HOME Condition at time of disposition: Improved Admit: No - Prescriptions Prescriptions: Oxycodone HCl/Acetaminophen [Percocet 5-325 mg Tablet -] 1 combo PO Q6H PRN #14 tablet MDD 4 PRN Reason: Pain Tamsulosin HCl [Flomax] 0.4 mg PO DAILY #28 capsule - Referrals Referrals: Bao Mejia MD [Staff Physician] - - Patient Instructions Printed Discharge Instructions: DI for Kidney Stones Additional Instructions: Please return if you have any new, worsening, or concerning symptoms. Please follow up with urology this week. Please see your primary care physician this week as well. - Post Discharge Activity Forms/Work/School Notes: Back to Work
[2017-07-18 04:44] LABS: ALBUMIN 3.9 g/dl (3.4-5.0); ALK PHOS 70 U/L (45-117); ANION GAP 12 (8-16); BILIRUBIN,TOTAL 0.4 mg/dL (0.2-1.0); BLOOD UREA NITROGEN 10 mg/dL (7-18); CALCIUM 8.5 mg/dL (8.5-10.1); CHLORIDE 106 mmol/L (98-107); CO2 22 mmol/L (21-32); CREATININE 0.9 mg/dL (0.7-1.3); GLUCOSE,RANDOM 104 mg/dL (74-106); LIPASE 112 U/L (73-393); POTASSIUM 3.8 mmol/L (3.5-5.1); SGOT/AST 16 U/L (15-37); SGPT/ALT 23 U/L (12-78); SODIUM 140 mmol/L (136-145); TOT PROT 6.5 g/dl (6.4-8.2)
[2017-07-18] MEDS ORDERED: ACETAMINOPHEN 325 MG TABLET (FP) PO ONE (05:32)
[2017-07-18] MEDS ORDERED: ACETAMINOPHEN 325 MG TABLET (FP) ONE (05:33)
== END 2017-07-18 07:05 | disposition home or self-care (01) ==
LOC: JER 03:09
PROC: 3E0337Z Introduction of Electrolytic and Water Balance Substance into Peripheral Vein, Percutaneous Approach (ICD-10-PCS; principal; 2017-07-18)
PROC: 3E033NZ Introduction of Analgesics, Hypnotics, Sedatives into Peripheral Vein, Percutaneous Approach (ICD-10-PCS; 2017-07-18)
DX: N13.2 Hydronephrosis with renal and ureteral calculous obstruction (principal); Z87.442 Personal history of urinary calculi
CPT/HCPCS: 36415; 74176; 80053; 81003; 83690; 85025; 96361; 96374; 99283-25

== ENCOUNTER 2017-07-20 05:26 | Emergency (ER) | payer OTHER ==
[2017-07-20 05:44] VITALS: PULSE 86; BMI 28.3
[2017-07-20] MEDS ORDERED: KETOROLAC TROMETHAMINE 60 MG/2 ML VIAL IM ONE (06:08)
[2017-07-20] MEDS ORDERED: ONDANSETRON *ODT* 4 MG TABLET SL ONE (06:08)
--- NOTE | 2017-07-20 06:08 | PDOC ---
History of Present Illness - General History Source: Patient - History of Present Illness Initial Comments: 07/20/17 06:09 The patient is a 37 year old male, Turkish speaking, with a significant past medical history kidney stones (diagnosed on 07/18/17), who presents to the emergency department with persistent waves of right flank pain since being diagnosed with a 5mm kidney stone in the right UVJ on 07/18/17. The patient reports the pain comes and goes and reportedly had an intense wave of pain just prior to presentation. The patient states he has become constipated since taking the percocet for pain. He denies chest pain, shortness of breath, headache and dizziness. He denies fever, chills, nausea, vomit, diarrhea and constipation. He denies dysuria, frequency, urgency and hematuria. Allergies: NKDA <Cindy Askew - Last Filed: 07/20/17 06:09> - General History Source: Patient <Carlos Benítez - Last Filed: 07/20/17 20:10> - General Chief Complaint: Pain Stated Complaint: ABD PAIN Time Seen by Provider: 07/20/17 06:07 Past History <Cindy Askew - Last Filed: 07/20/17 06:09> - Past Medical History COPD: No Kidney Stones: Yes (Since [facility]) - Surgical History Appendectomy: Yes Cholecystectomy: Yes - Suicide/Smoking/Psychosocial Hx Smoking History: Never smoked Have you smoked in the past 12 months: No Information on smoking cessation initiated: No Hx Alcohol Use: No Drug/Substance Use Hx: No Substance Use Type: None <Carlos Benítez - Last Filed: 07/20/17 20:10> - Past Medical History Allergies/Adverse Reactions: Allergies Allergy/AdvReac Type Severity Reaction Status Date / Time No Known Allergies Allergy Verified 07/20/17 05:41 Home Medications: Ambulatory Orders Naproxen [Naprosyn -] 500 mg PO BID #14 tablet 07/17/17 Oxycodone HCl/Acetaminophen [Percocet 5-325 mg Tablet -] 1 combo PO Q6H PRN #14 tablet MDD 4 07/18/17 Tamsulosin HCl [Flomax] 0.4 mg PO DAILY #28 capsule 07/18/17 Sulfamethoxazole/Trimethoprim [Bactrim Ds Tablet] 1 each PO BID #20 tablet 07/20 Review of Systems - Review of Systems Able to Perform ROS?: Yes Comments:: 07/20/17 06:11 CONSTITUTIONAL: Absent: fever, chills, diaphoresis, generalized weakness, malaise, loss of appetite HEENT: Absent: rhinorrhea, nasal congestion, throat pain, throat swelling, difficulty swallowing, mouth swelling, ear pain, eye pain, visual Changes CARDIOVASCULAR: Absent: chest pain, syncope, palpitations, irregular heart rate, lightheadedness , peripheral edema RESPIRATORY: Absent: cough, shortness of breath, dyspnea with exertion, orthopnea, wheezing, stridor, hemoptysis GASTROINTESTINAL: Absent: abdominal pain, abdominal distension, nausea, vomiting, diarrhea, constipation, melena, hematochezia GENITOURINARY: (+) right flank pain, Absent: dysuria, frequency, urgency, hesitancy, hematuria , genital pain MUSCULOSKELETAL: Absent: myalgia, arthralgia, joint swelling SKIN: Absent: rash, itching, pallor HEMATOLOGIC/IMMUNOLOGIC: Absent: easy bleeding, easy bruising, lymphadenopathy, frequent infections ENDOCRINE: Absent: unexplained weight gain, unexplained weight loss, heat intolerance, cold intolerance NEUROLOGIC: Absent: headache, focal weakness or paresthesias, dizziness, unsteady gait, seizure, mental status changes, bladder or bowel incontinence PSYCHIATRIC: Absent: anxiety, depression, suicidal or homicidal ideation, hallucinations. <Cindy Askew - Last Filed: 07/20/17 06:09> *Physical Exam - Vital Signs Last Vital Signs Temp Pulse Resp BP Pulse Ox 98.7 F 86 18 129/73 99 07/20/17 05:41 07/20/17 05:41 07/20/17 05:41 07/20/17 05:41 07/20/17 05:41 - Physical Exam Comments: 07/20/17 06:11 GENERAL: Well developed, well nourished. Awake and alert. No acute distress. HEENT: Normocephalic, atraumatic. PERRLA, EOMI. No conjunctival pallor. Sclera are non- icteric. Moist mucous membranes. Oropharynx is clear. NECK: Supple. Full ROM. No JVD. Carotid pulses 2+ and symmetric, without bruits. No thyromegaly. No lymphadenopathy. CARDIOVASCULAR: Regular rate and rhythm. No murmurs, rubs, or gallops. Distal pulses are 2+ and symmetric. PULMONARY: No evidence of respiratory distress. Lungs clear to auscultation bilaterally. No wheezing, rales or rhonchi. ABDOMINAL: (+) mild RLQ tenderness. Soft. Non-distended. No rebound or guarding. No organomegaly. Normoactive bowel sounds. MUSCULOSKELETAL Normal range of motion at all joints. No bony deformities or tenderness. No CVA tenderness. EXTREMITIES: No cyanosis. No clubbing. No edema. No calf tenderness. SKIN: Warm and dry. Normal capillary refill. No rashes. No jaundice. NEUROLOGICAL: Alert, awake, appropriate. Cranial nerves 2-12 intact. Normoreflexic in the upper and lower extremities. Normal speech. Toes are down-going bilaterally. Gait is normal without ataxia. PSYCHIATRIC: Cooperative. Good eye contact. Appropriate mood and affect. <Cindy Askew - Last Filed: 07/20/17 06:09> - Vital Signs Last Vital Signs Temp Pulse Resp BP Pulse Ox 98.7 F 86 18 129/73 99 07/20/17 05:41 07/20/17 05:41 07/20/17 05:41 07/20/17 05:41 07/20/17 05:41 <Carlos Benítez - Last Filed: 07/20/17 20:10> Medical Decision Making - Medical Decision Making 07/20/17 20:09 Dr. Benítez: The scribe's documentation has been prepared under my direction and personally reviewed by me in its entirery. I confirm that the note above accurately reflects all work, treatment, procedures, and medical decision making performed by me. <Carlos Benítez - Last Filed: 07/20/17 20:10> *DC/Admit/Observation/Transfer - Attestations Scribe Attestion: 07/20/17 06:12 Documentation prepared by Cindy Askew, acting as director of medical staff services for Carlos Benítez DO <Cindy Askew - Last Filed: 07/20/17 06:09> <Carlos Benítez - Last Filed: 07/20/17 20:10> Diagnosis at time of Disposition: Kidney stone - Discharge Dispostion Disposition: HOME Condition at time of disposition: Stable - Prescriptions Prescriptions: Sulfamethoxazole/Trimethoprim [Bactrim Ds Tablet] 1 each PO BID #20 tablet - Referrals Referrals: Bao Mejia MD [Staff Physician] - - Patient Instructions Printed Discharge Instructions: DI for Kidney Stones, DI for Urinary Tract Infection (UTI)
[2017-07-20] MEDS ORDERED: KETOROLAC TROMETHAMINE 60 MG/2 ML VIAL ONE (06:14)
[2017-07-20] MEDS ORDERED: ONDANSETRON *ODT* 4 MG TABLET ONE (06:14)
[2017-07-20 06:28] LABS: URINE APPEARANCE CLEAR; URINE BILIRUBIN NEGATIVE (NEGATIVE); URINE BLOOD 2+ (NEGATIVE); URINE COLOR LTYELLOW; URINE GLUCOSE (UA) NEGATIVE (NEGATIVE); URINE KETONE NEGATIVE (NEGATIVE); URINE LEUK ESTERASE TRACE (NEGATIVE); URINE NITRITE NEGATIVE (NEGATIVE); URINE PROTEIN NEGATIVE (NEGATIVE); URINE UROBILINOGEN NEGATIVE mg/dL (0.2-1.0)
[2017-07-20 06:47] LABS: URINE MUCUS RARE
[2017-07-20 07:25] VITALS: BP 98/41; TEMP 97.7
--- NOTE | 2017-07-20 11:22 | PDOC ---
*Physical Exam - Vital Signs Last Vital Signs Temp Pulse Resp BP Pulse Ox 97.7 F 86 18 98/41 97 07/20/17 07:22 07/20/17 05:41 07/20/17 05:41 07/20/17 07:22 07/20/17 07:22 - Physical Exam Comments: 07/20/17 11:19 Patient endorsed to me by . Patient is well-appearing 37-year-old male who presented with recurrent right lower quadrant pain. Patient recently diagnosed with a right UVJ stone. In the ER, patient is awake and alert, resting comfortably, symptom free, tolerates by mouth. Repeat CT that and pelvis reveals a 5 mm distal right UVJ stone with moderate hydronephrosis. Urinalysis reveals 9 WBCs per high power field. pt afebrile. Will discharge with additional Bactrim to previously prescribed Percocet and the Flomax with urology follow-up. ED Treatment Course - ADDITIONAL ORDERS Additional order review: Laboratory Results 07/20/17 06:15 Urine Color Ltyellow Urine Appearance Clear Urine pH 6.0 Ur Specific [place] 1.012 Urine Protein Negative Urine Glucose (UA) Negative Urine Ketones Negative Urine Blood 2+ H Urine Nitrite Negative Urine Bilirubin Negative Urine Urobilinogen Negative Urine WBC (Auto) 9 Urine RBC (Auto) 46 Urine Mucus Rare - Medications Given in the ED: ED Medications Discontinued Medications Generic Name Dose Route Start Last Admin Trade Name Freq PRN Reason Stop Dose Admin Ketorolac Tromethamine 60 mg 07/20/17 06:08 07/20/17 06:26 Toradol Injection - IM 07/20/17 06:09 60 mg ONCE ONE Administration Ondansetron HCl 4 mg 07/20/17 06:08 07/20/17 06:26 Zofran Odt - SL 07/20/17 06:09 4 mg ONCE ONE Administration *DC/Admit/Observation/Transfer Diagnosis at time of Disposition: Kidney stone - Discharge Dispostion Disposition: HOME Condition at time of disposition: Stable - Referrals Referrals: Bao Mejia MD [Staff Physician] - - Patient Instructions Printed Discharge Instructions: DI for Kidney Stones, DI for Urinary Tract Infection (UTI) - Post Discharge Activity
== END 2017-07-20 11:59 | disposition home or self-care (01) ==
LOC: JER 05:26
PROC: 3E0233Z Introduction of Anti-inflammatory into Muscle, Percutaneous Approach (ICD-10-PCS; principal; 2017-07-20)
DX: N20.0 Calculus of kidney (principal)
CPT/HCPCS: 74176; 81003; 81015; 87086; 96372; 99284-25

== ENCOUNTER 2017-09-03 14:05 | Emergency (ER) | payer OTHER ==
[2017-09-03 14:21] VITALS: BP 111/64; PULSE 67; TEMP 98.6; BMI 26.6
--- NOTE | 2017-09-03 15:29 | PDOC ---
History of Present Illness - General Chief Complaint: Cold Symptoms Stated Complaint: COLD SYMPTOMS Time Seen by Provider: 09/03/17 14:57 History Source: Patient Exam Limitations: No Limitations - History of Present Illness Initial Comments: CHIEF COMPLAINT: 37 y/o male with no significant PMH c/o flu like symptoms for the past 4 days. HISTORY OF PRESENT ILLNESS: The patient states he's had a dry cough, body aches , sore throat and runny nose x 4 days. He said he had a fever, chills and sweating yesterday. He has taken Motrin for his symptoms. He denies earache, n /v/d, CP, SOB, abd pain and all other symptoms. Past History - Past Medical History Allergies/Adverse Reactions: Allergies Allergy/AdvReac Type Severity Reaction Status Date / Time No Known Allergies Allergy Verified 09/03/17 14:16 Home Medications: Ambulatory Orders Tamsulosin HCl [Flomax] 0.4 mg PO DAILY #28 capsule 07/18/17 Guaifenesin 100 mg PO TID #100 ml 09/03/17 COPD: No Kidney Stones: Yes (Since [facility]) - Surgical History Appendectomy: Yes Cholecystectomy: Yes - Immunization History Immunization Up to Date: Yes - Suicide/Smoking/Psychosocial Hx Smoking History: Never smoked Have you smoked in the past 12 months: No Hx Alcohol Use: No Drug/Substance Use Hx: No Substance Use Type: None Review of Systems - Review of Systems Able to Perform ROS?: Yes Constitutional: Yes: Chills, Fever, Other (Body aches) HEENTM: Yes: Nose Congestion, Throat Pain. No: Eye Pain, Ear Pain, Ear Discharge, Nose Pain, Tinnitus, Throat Swelling, Difficulty Swallowing Respiratory: Yes: Cough. No: Shortness of Breath, Productive cough Cardiac (ROS): No: Symptoms Reported ABD/GI: No: Symptoms Reported Integumentary: No: Symptoms Reported Neurological: No: Symptoms reported *Physical Exam - Vital Signs Last Vital Signs Temp Pulse Resp BP Pulse Ox 98.6 F 67 18 111/64 97 09/03/17 14:17 09/03/17 14:17 09/03/17 14:17 09/03/17 14:17 09/03/17 14:17 - Physical Exam Comments: well appearing ambulatory male in NAD or obvious discomfort. No cough appreciated in the ER. General Appearance: Yes: Nourished, Appropriately Dressed. No: Apparent Distress HEENT: positive: EOMI, RAJINDER, Pharyngeal Erythema, Rhinorrhea. negative: Muffled /Hoarse voice, Tonsillar Exudate, Tonsillar Erythema, Nasal Congestion, TM Bulging, TM Dull, TM Erythema Neck: negative: Tender, Lymphadenopathy (R), Lymphadenopathy (L) Respiratory/Chest: positive: Lungs Clear, Normal Breath Sounds. negative: Respiratory Distress, Rales, Rhonchi, Wheezing Cardiovascular: positive: Regular Rhythm, Regular Rate Neurologic: positive: instructional supervisor II-XII NML intact, Fully Oriented, Alert Medical Decision Making - Medical Decision Making A/P: 37 y/o afebrile male with complaints of flu like symptoms for the past 4 days. He appears very well and is most likely getting better from whatever virus he had. Will discharge with a diagnosis of URI and will suggest supportive care instructions. Pt instructed to return to the ER with any worsening or concerning symptoms. The patient verbalizes understanding of all instructions, has no further questions and is awaiting discharge. *DC/Admit/Observation/Transfer Diagnosis at time of Disposition: Upper respiratory infection Qualifiers: URI type: unspecified URI Qualified Code(s): J06.9 - Acute upper respiratory infection, unspecified - Discharge Dispostion Disposition: HOME Condition at time of disposition: Good - Referrals - Patient Instructions Printed Discharge Instructions: DI for Viral Upper Respiratory Infection -- Adult Additional Instructions: Discharge Instructions: -You have an upper respiratory infection. It is caused by a virus -A prescription for cough medicine has been sent to your pharmacy -Please use cough drops if needed for cough as well -Gargle with warm salt water to help with sore throat -Take 600mg of Motrin every 6 hours to help with sore throat -Follow up with your doctor within 1 week -Return to the ER with any worsening or concerning symptoms. Instrucciones de descarga: -Tienes carol infeccin de las vas respiratorias superiores. Es causado por un virus -Carol receta para el medicamento para la tos siddiqui sido enviada a hebert farmacia -Por favor, use pastillas para la tos si es necesario para la tos tambin -Gargar con agua salada tibia para ayudar con el dolor de garganta - [place] 600 mg de Motrin cada 6 horas para ayudar con el dolor de garganta -Siga con hebert doctor dentro de 1 semana -Volver a la meena de emergencias con cualquier empeoramiento o sntomas. Print Language: OCCITAN - Post Discharge Activity
== END 2017-09-03 15:44 | disposition home or self-care (01) ==
LOC: JERFT 14:05
DX: J06.9 Acute upper respiratory infection, unspecified (principal)
CPT/HCPCS: 99281-25

== ENCOUNTER 2019-09-25 15:47 | Emergency (ER) | payer OTHER ==
[2019-09-25 15:58] VITALS: TEMP 98.4; BMI 34.3
--- NOTE | 2019-09-25 15:58 | PDOC ---
Rapid Medical Evaluation Chief Complaint: Pain, Acute Time Seen by Provider: 09/25/19 15:56 Medical Evaluation: Allergies Allergy/AdvReac Type Severity Reaction Status Date / Time No Known Allergies Allergy Verified 09/03/17 14:16 09/25/19 15:57 I have performed a brief in-person evaluation of this patient. The patient presents with a chief complaint of: diffuse abdominal pain for the last 2 days. No v/d. No fevers. Appendectomy 3 years ago. Pertinent physical exam findings: stable and well laura, non-toxic, no respiratory distress I have ordered the following: saline lock, labs The patient will proceed to the ED for further evaluation Discharge Disposition - Diagnosis Abdominal pain - Discharge Dispostion Condition at time of disposition: Stable - Referrals - Patient Instructions - Post Discharge Activity
--- NOTE | 2019-09-25 17:29 | PDOC ---
History of Present Illness - General Chief Complaint: Pain, Acute Stated Complaint: ABD PAIN/HEADACHE Time Seen by Provider: 09/25/19 15:56 History Source: Patient Exam Limitations: No Limitations - History of Present Illness Travel History: No Initial Comments: 09/25/19 17:25 39-year-old male presents to ED with complaints of 4 days of periumbilical cr amping without abdominal distention, diarrhea, nausea, vomiting or fever patient states symptoms began after drinking alcohol but denies any history of gastritis, pancreatitis, or other GI disorders. Patient denies any recent travel recent sick contacts, recent change in diet. Timing/Duration: reports: constant Quality: reports: mild, cramping Abdominal Pain Onset Location: reports: periumbilical Pain Radiation: reports: no radiation Activities at Onset: reports: none Aggravating Factors: improves with: None Alleviating Factors: improves with: None Past History - Travel Traveled outside of the country in the last 30 days: No Close contact w/someone who was outside of country & ill: No - Past Medical History Allergies/Adverse Reactions: Allergies Allergy/AdvReac Type Severity Reaction Status Date / Time No Known Allergies Allergy Verified 09/03/17 14:16 Home Medications: Ambulatory Orders Tamsulosin HCl [Flomax] 0.4 mg PO DAILY #28 capsule 07/18/17 Guaifenesin 100 mg PO TID #100 ml 09/03/17 COPD: No Kidney Stones: Yes (Since [facility]) - Surgical History Appendectomy: Yes Cholecystectomy: Yes - Immunization History Immunization Up to Date: Yes - Psycho Social/Smoking Cessation Hx Smoking History: Never smoked Have you smoked in the past 12 months: No Information on smoking cessation initiated: No Hx Alcohol Use: No Drug/Substance Use Hx: No Substance Use Type: None Patient Lives Alone: No Lives with/in: spouse/SO Abd/GI Specific PMHX - Complaint Specific PMHX Colitis: No Diverticulitis: No GERD: No Irritable Bowel Synd (IBS): No Review of Systems - Review of Systems Able to Perform ROS?: No Is the patient limited Niuean proficient: No Constitutional: No: Symptoms Reported HEENTM: No: Symptoms Reported Respiratory: No: Symptoms reported Cardiac (ROS): No: Symptoms Reported ABD/GI: Yes: Abdominal cramping : No: Symptoms Reported Musculoskeletal: No: Joint Swelling Integumentary: No: Symptoms Reported Neurological: No: Symptoms reported Hematologic/Lymphatic: No: Symptoms Reported *Physical Exam - Vital Signs Last Vital Signs Temp Pulse Resp BP Pulse Ox 98.4 F 63 18 105/63 97 09/25/19 15:56 09/25/19 15:56 09/25/19 15:56 09/25/19 15:56 09/25/19 15:56 - Physical Exam General Appearance: Yes: Nourished, Appropriately Dressed. No: Apparent Distress HEENT: negative: Pale Conjunctivae Neck: positive: Normal Thyroid Respiratory/Chest: positive: Lungs Clear, Normal Breath Sounds. negative: Respiratory Distress, Accessory Muscle Use Cardiovascular: positive: Regular Rhythm, Regular Rate Gastrointestinal/Abdominal: positive: Normal Bowel Sounds, Soft, Tenderness (Periumbilical, right periumbilical left periumbilical). negative: Distended, Guarding, Rebound Musculoskeletal: negative: CVA Tenderness Extremity: positive: Normal Inspection Integumentary: positive: Normal Color, Warm, Moist Neurologic: positive: Motor Strength 5/5 (Ambulatory) ED Treatment Course - LABORATORY CBC & Chemistry Diagram: 09/25/19 16:21 09/25/19 16:21 - RADIOLOGY Radiology Studies Ordered: Category Date Time Status KUB (KID UR & BLAD) [RAD] Stat Radiology 09/25/19 16:37 Ordered Medical Decision Making - Medical Decision Making 09/25/19 17:34 Chief complaint: Periumbilical cramping for the past 4 days without associated symptoms including nausea vomiting diarrhea or urinary complaints. 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 Exam: Patient with periumbilical tenderness with no distention guarding rebound tenderness or decreased bowel sounds. Plan: Labs, urine and KUB ordered 09/25/19 18:18 Laboratory Tests 09/25/19 16:21 WBC 9.2 Hgb 13.9 Hct 42.0 Neutrophils % 58.7 D Lymphocytes % 28.4 D Abdominal x-ray negative for acute pathology. Other labs pending. 09/25/19 18:44 Laboratory Tests 09/25/19 09/25/19 16:21 18:05 Sodium 139 Potassium 4.2 Chloride 106 Carbon Dioxide 27 Anion Gap 6 L BUN 12.0 Creatinine 0.7 Est GFR (CKD-EPI)AfAm 137.78 Est GFR (CKD-EPI)NonAf 118.88 Random Glucose 89 Calcium 8.5 Total Bilirubin 0.4 AST 49 H ALT 89 H Alkaline Phosphatase 91 Total Protein 7.4 Albumin 3.9 Lipase 172 Urine Protein Negative Urine Glucose (UA) Negative Urine Ketones Negative Urine Blood Negative Urine Nitrite Negative Urine Bilirubin Negative Urine Urobilinogen 0.2 Ur Leukocyte Esterase Negative I am going to prescribe patient Protonix and recommend him to avoid alcohol , no acidy, spicy or fried food Discharge - Discharge Information Problems reviewed: Yes Clinical Impression/Diagnosis: Abdominal pain Condition: Improved Disposition: HOME - Follow up/Referral - Patient Discharge Instructions Patient Printed Discharge Instructions: DI for Abdominal Pain-Adult Additional Instructions: Avoid spicy greasy and acidy food . please take Protonix as prescribed daily. Avoid alcohol use and drink plenty of fluids - Post Discharge Activity
[2019-09-25 17:43] LABS: BASO % 0.8 % (0-2.0); HEMOGLOBIN 13.9 GM/dL (11.7-16.9); LYMPH % 28.4 % (8-40); MCH 27.3 pg (25.7-33.7); MCHC 33.2 g/dl (32.0-35.9); MEAN CELL VOLUME 82.2 fl (80-96); MONO % 9.1 % (3.8-10.2); NEUT % 58.7 % (42.8-82.8); PLATELET COUNT 308 K/MM3 (134-434); RBC 5.11 M/mm3 (4.00-5.60); RDW 13.6 % (11.9-15.9); WHITE BLOOD COUNT 9.2 K/mm3 (4.0-10.0)
[2019-09-25 18:20] LABS: ALBUMIN 3.9 g/dl (3.4-5.0); BILIRUBIN,TOTAL 0.4 mg/dL (0.2-1); CALCIUM 8.5 mg/dL (8.5-10.1); CREATININE 0.7 mg/dL (0.55-1.3); POTASSIUM 4.2 mmol/L (3.5-5.1); TOT PROT 7.4 g/dl (6.4-8.2)
[2019-09-25 18:32] LABS: PH,URINE 6.5 (5.0-8.0); URINE APPEARANCE CLEAR; URINE BILIRUBIN NEGATIVE (NEGATIVE); URINE COLOR YELLOW; URINE GLUCOSE (UA) NEGATIVE (NEGATIVE); URINE KETONE NEGATIVE (NEGATIVE); URINE LEUK ESTERASE NEGATIVE (NEGATIVE); URINE NITRITE NEGATIVE (NEGATIVE); URINE PROTEIN NEGATIVE (NEGATIVE); URINE UROBILINOGEN 0.2 mg/dL (0.2-1.0)
[2019-09-25 18:56] VITALS: BP 105/72; PULSE 65
== END 2019-09-25 18:55 | disposition home or self-care (01) ==
LOC: JER 15:47
DX: R10.33 Periumbilical pain (principal); Z87.442 Personal history of urinary calculi; Z90.49 Acquired absence of other specified parts of digestive tract
CPT/HCPCS: 36415; 74018-TC-FY; 80053; 81003; 83690; 85025; 87086; 99284-25

== ENCOUNTER 2020-10-18 14:24 | Emergency (ER) | payer OTHER ==
[2020-10-18 14:31] VITALS: BP 105/67; PULSE 62; TEMP 98.6; BMI 33.2
[2020-10-19 10:09] LABS: SARS-CoV-2 NAA Not Detected (Not Detected)
== END 2020-10-18 17:31 | disposition home or self-care (01) ==
LOC: JER 14:24
DX: J02.9 Acute pharyngitis, unspecified (principal); R51.9 Headache, unspecified; R05 Cough; R50.9 Fever, unspecified; Z11.52 Encounter for screening for COVID-19
CPT/HCPCS: 71046-TC-FY; 87880; 99284-25; C9803; U0003; U0005